=== PATIENT | female | born 1970 | race Caucasian/White ===

== ENCOUNTER 2021-12-20 12:28 | Outpatient (CLI) | payer BC | END 2021-12-20 12:29 | disposition home or self-care (01) | LOC: CSHULT 12:28 | PROVIDERS: ATTEND Internal Medicine | DX: R79.89 Other specified abnormal findings of blood chemistry (principal); R10.11 Right upper quadrant pain; R13.10 Dysphagia, unspecified; R14.0 Abdominal distension (gaseous); Z86.010 Personal history of colon polyps; K76.0 Fatty (change of) liver, not elsewhere classified; Z90.49 Acquired absence of other specified parts of digestive tract | CPT/HCPCS: 76700 ==

== ENCOUNTER 2022-04-28 07:44 | Outpatient (CLI) | payer BC ==
[2022-04-28] MEDS ORDERED: Iopamidol 300 61% 100 ML VIAL FS ONE (11:15)
== END 2022-04-28 07:45 | disposition home or self-care (01) ==
LOC: CSHCT 07:44
PROVIDERS: ATTEND Physician Assistant Medical
DX: K76.0 Fatty (change of) liver, not elsewhere classified (principal); R19.5 Other fecal abnormalities; R11.0 Nausea; R63.4 Abnormal weight loss; K29.70 Gastritis, unspecified, without bleeding
CPT/HCPCS: 74177; Q9967